=== PATIENT | male | born 1950 | race Caucasian/White ===

== ENCOUNTER 2019-01-26 12:27 | Day surgery (SDC) | payer BC, MEDICAID ==
[~2019-01-26] VITALS: Ht 165.1 cm; Wt 86.2 kg
[2019-01-26 13:57] VITALS: Ht 165.1 cm; Wt 86.2 kg
[2019-01-26] MEDS ORDERED: LASIX (14:12)
[2019-01-26] MEDS ORDERED: ATORVASTATIN (14:12)
[2019-01-26] MEDS ORDERED: LOSARTAN (14:12)
[2019-01-26] MEDS ORDERED: AMLODIPINE (14:12)
--- NOTE | 2019-01-26 14:23 | PREAC ---
Date/Time of Note Date/Time of Note DATE: 01/26/19 TIME: 14:22 Anesthesia Eval and Record Evaluation Time Pre-Procedure Interview DATE: 01/26/19 TIME: 14:22 Age 68 Sex male NPO: 8 hrs Preoperative diagnosis screening Planned procedure colonoscopy Past Medical History Past Medical History: Includes Cardio: HTN, Dyslipidemia Surgery & Anesthesia Issues No known issue Meds Anticoagulation: No Beta Azeb within 24 hr: No Reason Beta Azeb not given: Pt. not on B-Azeb Reported Medications [Atorvastatin] No Conflict Check 01/26/19 [Losartan] No Conflict Check 01/26/19 [Lasix] No Conflict Check 01/26/19 [Amlodipine] No Conflict Check 01/26/19 Meds reviewed: Yes Allergies Coded Allergies: No Known Allergies (Unverified Allergy, Unknown, 12/01/14) Allergies Reviewed: Yes Labs/Studies Labs Reviewed: Reviewed by anesthesiologist test: N/A Pre-procedure Exam Airway: Adequate mouth opening, Adequate thyromental dist Mallampati: Mallampati II Teeth: Normal Lung: Normal Heart: Normal ASA Physical Status ASA physical status: 2 Emergency: None Planned Anesthetic General/MAC: Mask Planned Pain Management Parenteral pain med Pre-operative Attestations Prior to commencing anesthesia and surgery, the patient was re-evaluated, there was verification of: *The patient's identity *The results of appropriate recent lab work and preoperative vital signs *The above evaluation not changing prior to induction *Anesthetic plan, risk benefits, alternative and complications discussed with patient/family; questions answered; patient/family understands, accepts and wishes to proceed. [employer] Assurance [employer] Lab Analyst used VALDEMAR LEPE MD Jan 26, 2019 14:23
[2019-01-26] MEDS ORDERED: ONDANSETRON 4 MG INJ IV PRN (14:30)
[2019-01-26] MEDS ORDERED: HYDROmorphONE 1 MG/5 ML IV SYRINGE IV PRN (14:30)
[2019-01-26] MEDS ORDERED: PROPOFOL 40 ML ONE (14:37)
[2019-01-26] MEDS ORDERED: LIDOCAINE 2% (SDV) 5 ML INJ ONE (14:37)
[2019-01-26 14:39] VITALS: BP 164/79; PULSE 84; RESP 18
--- NOTE | 2019-01-26 15:09 | PAC ---
Date/Time of Note Date/Time of Note DATE: 01/26/19 TIME: 15:07 Post-Anesthesia Notes Post-Anesthesia Note Activity: WNL Respiratory function: WNL Cardiovascular function: WNL Mental status: Baseline Pain reasonably controlled: Yes Hydration appropriate: Yes Nausea/Vomiting absent: Yes Comments BP: 114/63 HR: 68 RR: 15 T: 98 SaO2: 98% VALDEMAR LEPE MD Jan 26, 2019 15:09
[2019-01-26 15:28] VITALS: BP 115/63; PULSE 61; RESP 16
== END 2019-01-26 16:41 | disposition home or self-care (01) ==
LOC: GIL 12:27
PROVIDERS: ATTEND Internal Medicine Gastroenterology
DX: Z12.11 Encounter for screening for malignant neoplasm of colon (principal); K64.8 Other hemorrhoids; K57.30 Diverticulosis of large intestine without perforation or abscess without bleeding; I10 Essential (primary) hypertension; E78.5 Hyperlipidemia, unspecified
CPT/HCPCS: 45378; Z7610